=== PATIENT | female | born 1990 | race Two or more races ===

== ENCOUNTER 2020-05-29 08:35 | Outpatient (CLI) | payer OTHER | END 2020-05-29 09:42 | disposition home or self-care (01) | LOC: OFIC 805 08:35 | PROVIDERS: ATTEND Otolaryngology Otology & Neurotology | DX: R09.81 Nasal congestion (principal); J30.89 Other allergic rhinitis; H61.22 Impacted cerumen, left ear; H92.02 Otalgia, left ear ==